=== PATIENT | male | born 1980 | race Caucasian/White ===

== ENCOUNTER 2021-04-02 16:11 | Emergency (ER) | payer OTHER, MEDICAID ==
[~2021-04-02] VITALS: Ht 172.7 cm; Wt 70.0 kg
[2021-04-02] MEDS ORDERED: LORazepam 1 MG tablet PO ONE ×2 (16:25→21:40)
[2021-04-02 17:08] LABS: BASOPHILS % (AUTO) 0.9 % (0-1); EOSINOPHILS # (AUTO) 0.2 X10'3 (0-0.9); HEMATOCRIT 40.9 % (42.0-52.0); HEMOGLOBIN 13.8 g/dl (14.0-17.9); LYMPHOCYTES # (AUTO) 1.2 X10'3 (1.1-4.8); LYMPHOCYTES % (AUTO) 22.7 % (21-51); MEAN CORPUSCULAR HEMOGLOBIN 29.3 PG (27.0-31.0); MEAN CORPUSCULAR HGB CONC 33.7 g/dL (33.0-36.5); MEAN CORPUSCULAR VOLUME 86.9 FL (78-98); MEAN PLATELET VOLUME 7.6 FL (7.4-10.4); MONOCYTES # (AUTO) 0.3 X10'3 (0-0.9); MONOCYTES % (AUTO) 6.6 % (2-12); NEUTROPHILS # (AUTO) 3.5 X10'3 (1.8-7.7); NEUTROPHILS % (AUTO) 66.8 % (42-75); PLATELET COUNT 415 X10'3 (140-440); RED CELL DISTRIBUTION WIDTH 13.2 % (11.5-14.5); WHITE BLOOD COUNT 5.2 X10'3 (4.5-11.0)
[2021-04-02 17:15] LABS: ALANINE AMINOTRANSFERASE 9 U/L (12-78); ALBUMIN 4.2 G/DL (3.4-5.0); ALBUMIN/GLOBULIN RATIO 1.3 (1.1-1.5); ALKALINE PHOSPHATASE 36 IU/L (46-116); ANION GAP 11 (8-16); ASPARTATE AMINO TRANSFERASE 11 U/L (10-37); BILIRUBIN,TOTAL 0.9 MG/DL (0.1-1.0); BLOOD UREA NITROGEN 11 MG/DL (7-18); BUN/CREATININE RATIO 10.5 (5.4-32.0); CALCIUM 9.1 MG/DL (8.5-10.1); CHLORIDE 105 MMOL/L (99-107); CREATININE 1.05 MG/DL (0.60-1.10); GLUCOSE 97 MG/DL (70-104); POTASSIUM 4.5 MMOL/L (3.5-5.1); SODIUM 143 MMOL/L (135-145); TOTAL CARBON DIOXIDE 26.9 MMOL/L (24-32); TOTAL PROTEIN 7.5 G/DL (6.4-8.2); eGFR 77 ML/MIN
[2021-04-02 17:23] LABS: CLARITY,URINE CLEAR (Clear); COLOR,URINE YELLOW (Yellow); GLUCOSE, URINE NEGATIVE (Neg); KETONES,URINE NEGATIVE (Neg); LEUKOCYTE ESTERASE ,URINE NEGATIVE (Neg); NITRITES, URINE NEGATIVE (Neg); OCCULT BLOOD,URINE NEGATIVE (Neg); PROTEIN,URINE NEGATIVE (Neg); UROBILINOGEN,URINE 0.2 E.U/dL (0.2-1.0)
[2021-04-02 17:26] LABS: ETHANOL < 0.010 GM/DL (0.0-0.010)
[2021-04-02 17:28] LABS: URINE AMPHETAMINE SCREEN NEGATIVE (Neg); URINE BARBITUATE SCREEN NEGATIVE (Neg); URINE BENZODIAZEPINES SCREEN NEGATIVE (Neg); URINE CANNABINOID SCREEN POSITIVE (Neg); URINE COCAINE SCREEN NEGATIVE (Neg); URINE METHADONE SCREEN NEGATIVE (Neg); URINE OPIATE SCREEN NEGATIVE (Neg); URINE PHENCYCLIDINE SCREEN NEGATIVE (Neg)
[2021-04-02 17:32] LABS: UA COLLECTION TYPE VOIDED
[2021-04-02] MEDS ORDERED: NO HOME MEDS (20:24)
[2021-04-02] MEDS ORDERED: quetiapine 100mg tablet PO STA (21:39)
--- NOTE | 2021-04-03 10:43 | NUR ---
PACKET FAXED TO [facility] OFFICE
--- NOTE | 2021-04-03 11:56 | NUR ---
call from [phone].
[2021-04-03] MEDS ORDERED: QUEtiapine 25mg tablet PO ONE (20:10)
[2021-04-03] MEDS ORDERED: LORazepam 1 MG tablet PO ONE (20:10)
--- NOTE | 2021-04-03 22:00 | NUR ---
PT UPSET AND YELLING IN ROOM ABOUT WANTING TO LEAVE AND NOT HAVING ENOUGH COFFEE. PT MEDICATED AND NOW PT RESTING IN BED WITH EYES CLOSED.
[2021-04-03 23:30] VITALS: BP 130/85
== END 2021-04-04 10:19 ==
LOC: ER 16:12
DX: F31.9 Bipolar disorder, unspecified (principal); R45.850 Homicidal ideations; F41.9 Anxiety disorder, unspecified; R45.1 Restlessness and agitation
CPT/HCPCS: 36415; 80053; 80305; 80320; 81003; 84443; 85025; 99285